=== PATIENT | male | born 1995 | race Caucasian/White ===

== ENCOUNTER 2021-09-01 20:35 | Emergency (ER) | payer OTHER ==
[~2021-09-01] VITALS: Ht 167.6 cm; Wt 61.2 kg
== END 2021-09-01 21:33 | disposition home or self-care (01) ==
LOC: ER 20:35
DX: T23.251A Burn of second degree of right palm, initial encounter (principal); T31.0 Burns involving less than 10% of body surface; X08.8XXA Exposure to other specified smoke, fire and flames, initial encounter
CPT/HCPCS: 16020; 99283-25